=== PATIENT | female | born 1990 | race Caucasian/White ===

== ENCOUNTER 2018-09-26 10:02 | Inpatient (IN) | payer OTHER ==
[~2018-09-26] VITALS: Ht 160 cm; Wt 45.4 kg
[2018-09-26] MEDS ORDERED: AMOXICILLIN500 MG (10:27)
--- NOTE | 2018-09-26 10:27 | NUR ---
SE RECIBE PTE ALERTA Y ORIENTADA X3,REFIERE ESTRA CON TOS CONGESTION NASAL .LLEVA 2 SEMANS CON LOS SINTOMAS ,TRABAJA EN UN CRUCERO ,REFIERE QUE LE RECETARON AMOXICILIM.
--- NOTE | 2018-09-26 11:43 | NUR ---
SE ORIENTA PTE SOBRE EL TRATAMIENTO ORDENADO POR LA DRA NAVA PTE ALERTA Y CONCIENTE POR 3 SE REALIZAN MUESTRAS DE LABORTORIO Y SE ADMINISTRAN MEDICAMENTO VALENTINA ORDENADO.
== END 2018-11-23 03:07 | disposition designated cancer center or children's hospital (05) | DRG 195 ==
LOC: ER 10:02 → MEDJ 18:31 → MEDI 18:31 → MEDJ 19:08 → MEDI 09-29 06:31 → MEDJ 09-29 13:51
PROVIDERS: ADMIT Internal Medicine
PROC: 3E0F7GC Introduction of Other Therapeutic Substance into Respiratory Tract, Via Natural or Artificial Opening (ICD-10-PCS; principal; 2018-09-26)
PROC: BB24ZZZ Computerized Tomography (CT Scan) of Bilateral Lungs (ICD-10-PCS; 2018-09-28)
PROC: 8E0ZXY6 Isolation (ICD-10-PCS; 2018-09-29)
DX: J16.8 Pneumonia due to other specified infectious organisms (principal); J09.X2 Influenza due to identified novel influenza A virus with other respiratory manifestations; A15.0 Tuberculosis of lung; R50.9 Fever, unspecified